=== PATIENT | female | born 1960 | race Caucasian/White ===

== ENCOUNTER 2024-06-11 11:10 | Emergency (ER) | payer SELFPAY | END 2024-06-11 12:59 | disposition home or self-care (01) | LOC: VM.ED 11:10 | DX: S42.201A Unspecified fracture of upper end of right humerus, initial encounter for closed fracture (principal); Z79.1 Long term (current) use of non-steroidal anti-inflammatories (NSAID); W19.XXXA Unspecified fall, initial encounter | CPT/HCPCS: 73030-RT; 99283 ==